=== PATIENT | female | born 1970 ===

== ENCOUNTER 2020-03-21 17:03 | Emergency (ER) | payer OTHER, SELFPAY ==
[2020-03-21 17:14] VITALS: BP 142/81; PULSE 70; RESP 20; TEMP 36.5; O2SAT 100
--- NOTE | 2020-03-21 17:34 | ED.DENTAL ---
HPI - Dental/Oral General Chief complaint: Dental/Oral Stated complaint: toothache Time Seen by Provider: 03/21/20 17:18 Source: patient and RN notes reviewed Mode of arrival: ambulatory Limitations: no limitations History of Present Illness HPI Narrative: Patient presents today complaining of right lower dental pain. States the affected tooth has been broken for several months, but had not been causing pain until yesterday. Reports that her dentist office is currently closed, but will open again on March 27, and she will call to make an appointment. Denies any recent fever, shortness of breath, difficulty swallowing. She has been taking Tylenol and using Anbesol with some relief. Currently rates her pain 5/10. Pain radiates to the right church Complaint: tooth pain Related Data Home Medications Medication Instructions Recorded Confirmed albuterol sulfate 2 puff INHALATION QID PRN 03/21/20 03/21/20 lisinopril 5 mg PO DAILY 03/21/20 03/21/20 simvastatin 40 mg PO DAILY 03/21/20 03/21/20 Allergies Allergy/AdvReac Type Severity Reaction Status Date / Time No Known Allergies Allergy Verified 03/21/20 17:18 Review of Systems Review of Systems: Narrative: CONSTITUTIONAL: Denies body aches, fever, chills, or sweats. EYES: Denies visual changes, redness, or discharge. ENT: Denies rhinorrhea, congestion, sore throat, or otalgia.+ Dental pain CARDIOVASCULAR: Denies chest pain, palpitations, or edema. RESPIRATORY: Denies cough or dyspnea. GASTROINTESTINAL: Denies abdominal pain, nausea, vomiting, or diarrhea. GENITOURINARY: Denies dysuria or hematuria. SKIN: Denies rash, itching, or wounds. MUSCULOSKELETAL: Denies back pain, joint pain, or myalgia. NEUROLOGIC: Denies headache, numbness, tingling, or weakness. PSYCH: Denies depression or anxiety. [facility] Past Medical History Medical History (Updated 03/21/20 @ 17:38 by Carla Owens, [employer], ) Hypercholesterolemia Hypertension Family History Family History (Updated 03/01/19 @ 15:13 by DOCTOR UNKNOWN) Mother Cerebrovascular accident Other Diabetes mellitus Family history of cardiovascular disease Hypertension Social History Social History Smoking status: Current every day smoker Alcohol intake: current Comments At time of signature, I have reviewed and agree with nursing past medical, surgical, social and family history unless otherwise noted. Please see nursing chart for further information. There is no relevant family history pertinent to the presenting complaint Exam Narrative: Exam Narrative: GENERAL: Well-appearing, well-nourished, and in no acute distress. HEAD: Normocephalic, atraumatic. EYES: EOMI. No redness or drainage. Conjunctivae normal. ENT: Mucous membranes pink and moist. Throat normal. Uvula midline. + Small anterior portion of tooth #29 is missing. No surrounding erythema or edema of the gumline. No obvious periapical abscess. No swelling of the face noted. Remainder of teeth appear well taken care of. NECK: Normal AROM. Supple. No lymphadenopathy. CHEST: No respiratory distress. EXTREMITIES: Normal range of motion. No edema. SKIN: Warm, dry, no rash. Capillary refill normal. Normal skin turgor. NEURO: No focal deficits. Alert and oriented x3. Gait steady. PSYCH: Normal affect. No signs of depression or anxiety. Course Vital Signs Vital signs: Vital Signs Temperature 97.7 F 03/21/20 17:14 Pulse Rate 70 03/21/20 17:14 Respiratory Rate 03/21/20 17:14 Blood Pressure 142/81 H 03/21/20 17:14 Pulse Oximetry 100 03/21/20 17:14 Temperature 97.7 F 03/21/20 17:14 Pulse Rate 70 03/21/20 17:14 Respiratory Rate 03/21/20 17:14 Blood Pressure 142/81 H 03/21/20 17:14 Pulse Oximetry 100 03/21/20 17:14 Reviewed. Pt has been instructed to follow up with her PCP regarding her elevated blood pressure today. MDM - Dental/Oral Differential Diagnosis Differential diagnosis
== END 2020-03-21 17:54 | disposition home or self-care (01) ==
PROVIDERS: Emergency Provider Nurse Practitioner
DX: S02.5XXA Fracture of tooth (traumatic), initial encounter for closed fracture (principal); X58.XXXA Exposure to other specified factors, initial encounter; F17.200 Nicotine dependence, unspecified, uncomplicated; E78.00 Pure hypercholesterolemia, unspecified; I10 Essential (primary) hypertension
CPT/HCPCS: 99213; G0463